=== PATIENT | female | born 1990 | race Caucasian/White ===

== ENCOUNTER 2017-03-15 09:41 | Emergency (ER) | payer OTHER ==
[~2017-03-15] VITALS: Ht 165.1 cm; Wt 77.0 kg
[~2017-03-15 09:41] MED LIST: NOHOMEMEDS
[2017-03-15] MEDS ORDERED: DICLEGIS DR 101 EACH PO (10:21)
[2017-03-15 10:24] LABS: HEMATOCRIT 39.2 % (36.0-46.0); MCH 28.9 PG (29.0-34.0); MCHC 34.2 G/DL (30.0-36.0); MCV 84.7 FL (83-99); MEAN PLAT.VOLUME 9.8 uM^3 (9.5-12.4); PLATELET COUNT 240 K/uL (156-360); RBC DIS.WIDTH-CV 11.8 % (11.8-14.6); RBC DIS.WIDTH-SD 35.9 % (39-53); RED BLOOD COUNT 4.63 M/uL (3.80-5.20); WHITE BLOOD COUNT 9.4 K/uL (4.1-10.2)
[2017-03-15 10:34] LABS: CHLORIDE 104 mEq/L (99-109); POTASSIUM 3.5 mEq/L (3.7-5.4); SODIUM 136 mEq/L (136-147)
[2017-03-15 10:37] LABS: GLUCOSE 90 mg/dL (70-99)
[2017-03-15 10:38] LABS: ANION GAP 11 MEQ/L (2-14)
[2017-03-15 10:39] LABS: TOTAL BILIRUBIN 0.6 mg/dL (0.0-1.0)
[2017-03-15 10:40] LABS: ALKALINE PHOSPHATASE 50 IU/L (3-129); GFR ESTIMATE (CALCULATED) > 59 mL/min/
[2017-03-15 10:41] LABS: UREA NITROGEN (BUN) 7 mg/dL (9-23)
[2017-03-15 11:09] LABS: QUANTITATIVE HCG 133862.5 MIU/ML
[2017-03-15 11:51] LABS: ADD MIUA? YES; BILIRUBIN NEGATIVE; BLOOD NEGATIVE; COLOR YELLOW ((YELLOW)); GLUCOSE (STRIP) NEGATIVE; KETONES 80; LEUKOCYTES MODERATE; NITRITE NEGATIVE; PROTEIN (STRIP) 100; SPECIFIC GRAVITY 1.021 (1.000-1.030)
[2017-03-15 12:05] LABS: BACTERIA 2+ /HPF; EPITHELIAL CELLS 2+ /HPF; MUCUS 1+ /LPF; RED BLOOD CELLS NONE SEEN /HPF (0-5); UCUL ADDED? YES; WHITE BLOOD CELLS 40-50 /HPF (0-5)
[2017-03-15] MEDS ORDERED: MACROBID100 MG PO (12:12)
[2017-03-15 12:33] VITALS: BP 120/82
== END 2017-03-15 12:35 | disposition home or self-care (01) ==
LOC: EME 09:41
PROVIDERS: Emergency Medicine
DX: O21.9 Vomiting of pregnancy, unspecified (principal); O23.41 Unspecified infection of urinary tract in pregnancy, first trimester; Z3A.11 11 weeks gestation of pregnancy
CPT/HCPCS: 80053; 81003; 84702; 85027; 87086; 99281; 99285; J2405; J7030

== ENCOUNTER → 2017-07-14 | Outpatient (CLI) | payer OTHER ==
[~2017-07-14] VITALS: Ht 170.2 cm; Wt 90.1 kg
[~2017-07-14] MED LIST changes: +DICLEGIS DR 101 EACH PO; +FEOSOL325 MG PO; +MACROBID100 MG PO; +PRENATAL VITAM1 EA11 PO; +PROGESTERONE50 MG/ML IM
[2017-07-14 07:46] VITALS: BP 116/72
== END | disposition home or self-care (01) ==
LOC: IVINF 07:30
DX: Z31.82 Encounter for Rh incompatibility status (principal); Z3A.28 28 weeks gestation of pregnancy; Z67.91 Unspecified blood type, Rh negative
CPT/HCPCS: 96372; J2790

== ENCOUNTER 2017-10-04 17:47 | Outpatient (CLI) | payer OTHER ==
[2017-10-04 17:59] VITALS: BP 137/83
[2017-10-05] MEDS ORDERED: MOTRIN800 MG PO (16:27)
== END 2017-10-04 19:00 | disposition home or self-care (01) ==
LOC: LDRP-OP 17:47 → 2WEST 17:48 → LDRP-OP 11-04 16:57
DX: O47.1 False labor at or after 37 completed weeks of gestation (principal); Z3A.39 39 weeks gestation of pregnancy
CPT/HCPCS: 59025; G0378

== ENCOUNTER 2017-10-05 11:10 | Inpatient (IN) | payer OTHER ==
[~2017-10-05] VITALS: Ht 167.6 cm; Wt 97.5 kg
[2017-10-05] VITALS (13 sets, daily range): BP systolic 122–141; BP diastolic 75–96
[2017-10-05 12:00] LABS: BASOPHIL (%) 0.2 % (0-1); EOSINOPHIL (%) 0.6 % (0-5); EOSINOPHIL COUNT 0.1 K/uL (0-0.3); HEMATOCRIT 36.9 % (36.0-46.0); HEMOGLOBIN 12.1 G/DL (11.9-15.5); IMMATURE GRANULOCYTE (%) 0.6 % (0.0-0.7); LYMPHOCYTE (%) 16.7 % (15-42); LYMPHOCYTE COUNT 2.1 K/uL (1.0-2.8); MCH 27.5 PG (29.0-34.0); MCHC 32.8 G/DL (30.0-36.0); MCV 83.9 FL (83-99); MONOCYTE (%) 8.1 % (3-12); NEUTROPHIL (%) 73.8 % (45-76); NEUTROPHIL COUNT 9.3 K/uL (1.8-6.4); PLATELET COUNT 297 K/uL (156-360); RBC DIS.WIDTH-CV 14.2 % (11.8-14.6); RBC DIS.WIDTH-SD 43.4 % (39-53); WHITE BLOOD COUNT 12.6 K/uL (4.1-10.2)
[2017-10-05] MEDS ORDERED: MOTRIN800 MG PO (16:27)
[2017-10-06 07:13] VITALS: BP 115/67
[2017-10-06 15:01] VITALS: BP 118/66
[2017-10-06 23:39] VITALS: BP 128/74
== END 2017-10-07 11:10 | disposition home or self-care (01) | DRG 775 ==
LOC: LDRP-OP 11:10 → 2WEST 11:11 → LDRP-OP 02-24 21:27
PROVIDERS: Nurse Practitioner
PROC: 10E0XZZ Delivery of Products of Conception, External Approach (ICD-10-PCS; principal; 2017-10-05)
PROC: 0HQ9XZZ Repair Perineum Skin, External Approach (ICD-10-PCS; principal; 2017-10-05)
PROC: 10907ZC Drainage of Amniotic Fluid, Therapeutic from Products of Conception, Via Natural or Artificial Opening (ICD-10-PCS; 2017-10-05)
DX: O99.214 Obesity complicating childbirth (principal); O36.0931 Maternal care for other rhesus isoimmunization, third trimester, fetus 1; E66.9 Obesity, unspecified; Z37.0 Single live birth; Z68.34 Body mass index [BMI] 34.0-34.9, adult; Z3A.40 40 weeks gestation of pregnancy
CPT/HCPCS: 59025; 83030; 85025; 86850; 86870; 86900; 86901; 86905; G0378; J2590; J2790